=== PATIENT | female | born 1950 | race Hispanic/Latino ===

== ENCOUNTER 2017-10-28 10:45 | Inpatient (IN) | payer MEDICARE ==
[~2017-10-28] VITALS: Ht 170.2 cm; Wt 68.9 kg
[2017-10-28 12:50] VITALS: BP 136/70
[2017-10-28 13:22] LABS: BASOPHILS % (AUTO) 0.5 % (0.0-5.0); EOSINOPHILS % (AUTO) 0.7 % (0.0-8.0); HEMATOCRIT 41.6 % (36-48); LYMPHOCYTES % (AUTO) 24.2 % (21.0-51.0); MEAN CORPUSCULAR HEMOGLOBIN 30.4 pg (27.0-33.0); MEAN CORPUSCULAR HGB CONC 33.9 g/dL (32.0-36.0); MEAN CORPUSCULAR VOLUME 89.9 fL (79-99); MONOCYTES % (AUTO) 5.4 % (3.0-13.0); NEUTROPHILS % (AUTO) 69.2 % (40.0-77.0); NUCLEATED RED BLOOD CELLS 0.1 % (0.0-0.19); PLATELET COUNT (AUTO) 399 K/uL (130-400); RED BLOOD CELL COUNT(AUTO) 4.63 MIL/uL (4.00-5.50); RED CELL DISTRIBUTION WIDTH 14.6 % (11.0-15.5)
[2017-10-28 13:31] LABS: CREATININE 0.8 mg/dL (0.5-1.5); POTASSIUM 4.2 mmol/L (3.5-5.1)
[2017-10-28] MEDS ORDERED: LOSA50TA37 PO (13:33)
[2017-10-28] MEDS ORDERED: LATA2.5D2 OU (13:33)
[2017-10-29] VITALS (21 sets, daily range): BP systolic 107–145; BP diastolic 59–95
[2017-10-29] MEDS: CEFAZOLIN SODIUM 1 GM VIAL IVP SCH ×2 (06:00→09:40)
[2017-10-29] MEDS ORDERED: LACTATED RINGERS 1000ML 1,000 ML IV SCH (06:00)
[2017-10-29] MEDS ORDERED: GLYCOPYRROLATE 0.2 MG/ML 5 ML VIAL ONE (08:41)
[2017-10-29] MEDS ORDERED: DEXAMETHASONE SOD PHOSPHATE 10MG/ML 1ML VIAL ONE (08:41)
[2017-10-29] MEDS ORDERED: NEOSTIGMINE 5MG/5ML SYR IV ONE (08:41)
[2017-10-29] MEDS ORDERED: ONDANSETRON HCL 4 MG/2 ML VIAL ONE (08:41)
[2017-10-29] MEDS ORDERED: LIDOCAINE PF 2% 5ML ABBOJECT ONE (08:41)
[2017-10-29] MEDS ORDERED: MIDAZOLAM HCL 1 MG/ML 2ML VIAL ONE (08:42)
[2017-10-29] MEDS ORDERED: PROPOFOL 10 MG/ML 20ML VIAL IV ONE (08:42)
[2017-10-29] MEDS ORDERED: FENTANYL CITRATE PF 50 MCG/1 ML 2ML VIAL ONE (08:42)
[2017-10-29] MEDS ORDERED: ROPIVACAINE 0.5% 5MG/ML 30ML IJ ONE (08:48)
[2017-10-29] MEDS ORDERED: VECURONIUM BROMIDE 10 MG ML IV ONE (08:48)
[2017-10-29] MEDS ORDERED: MEPERIDINE-PF 25 MG/ML SYG ONE ×2 (11:06→11:19)
[2017-10-29] MEDS ORDERED: PROMETHAZINE HCL 25 MG/ML 1ML AMPULE IM PRN (11:15)
[2017-10-29] MEDS ORDERED: MEPERIDINE-PF 75 MG/ML SYG IM PRN (11:15)
[2017-10-29] MEDS ORDERED: PROMETHAZINE HCL 25 MG/ML 1ML AMPULE IM ONE (11:18)
[2017-10-29] MEDS: DEXTROSE 5%-LACTATED RINGERS 1,000 ML IV PRN ×2 (13:13→21:19)
[2017-10-29] MEDS: ACETAMINOPHEN-CODEINE 300/30MG TAB PO PRN (18:42)
[2017-10-29] MEDS: LATANOPROST 2.5 ML DROPS OU SCH (21:14)
[2017-10-30 03:25] VITALS: BP 143/80
[2017-10-30] MEDS: DEXTROSE 5%-LACTATED RINGERS 1,000 ML IV PRN (06:28)
[2017-10-30 06:51] LABS: HEMATOCRIT 41.8 % (36-48); MEAN CORPUSCULAR HEMOGLOBIN 30.2 pg (27.0-33.0); MEAN CORPUSCULAR HGB CONC 33.6 g/dL (32.0-36.0); MEAN CORPUSCULAR VOLUME 89.9 fL (79-99); PLATELET COUNT (AUTO) 373 K/uL (130-400); RED BLOOD CELL COUNT(AUTO) 4.65 MIL/uL (4.00-5.50); RED CELL DISTRIBUTION WIDTH 14.1 % (11.0-15.5); WHITE BLOOD COUNT (AUTO) 13.3 K/uL (4.8-10.8)
[2017-10-30 07:34] VITALS: BP 127/72
[2017-10-30] MEDS ORDERED: IBUPROFEN 800 MG TAB ONE (08:52)
[2017-10-30] MEDS: DOCUSATE SODIUM 100 MG CAP PO PRN ×2 (08:56→20:39)
[2017-10-30] MEDS: SIMETHICONE 80 MG TAB.CHEW PO PRN ×2 (08:56→20:39)
[2017-10-30] MEDS: LOSARTAN 50 MG TABLET PO SCH (08:56)
[2017-10-30] MEDS: IBUPROFEN 800 MG TAB PO SCH ×2 (08:57→19:19)
[2017-10-30 11:24] VITALS: BP 122/73
[2017-10-30 15:25] VITALS: BP 136/82
[2017-10-30] MEDS: ACETAMINOPHEN-CODEINE 300/30MG TAB PO PRN (16:04)
[2017-10-30] MEDS: LATANOPROST 2.5 ML DROPS OU SCH (20:40)
[2017-10-30 23:35] VITALS: BP 117/66
[2017-10-31 03:30] VITALS: BP 135/89
[2017-10-31] MEDS: IBUPROFEN 800 MG TAB PO SCH ×2 (03:30→11:18)
[2017-10-31 07:38] VITALS: BP 136/75
[2017-10-31] MEDS: LOSARTAN 50 MG TABLET PO SCH (09:05)
[2017-10-31] MEDS: DOCUSATE SODIUM 100 MG CAP PO PRN (09:06)
[2017-10-31] MEDS: SIMETHICONE 80 MG TAB.CHEW PO PRN (09:06)
[2017-10-31] MEDS: ACETAMINOPHEN-CODEINE 300/30MG TAB PO PRN (09:07)
[2017-10-31 11:23] VITALS: BP 136/80
== END 2017-10-31 12:50 | disposition home or self-care (01) | DRG 743 ==
LOC: DAHIP 10-29 08:09 → EDSTATUS 10-29 10:45 → WSH 10-29 12:30
PROVIDERS: ADMIT Specialist; ATTEND Specialist
PROC: 0UT20ZZ Resection of Bilateral Ovaries, Open Approach (ICD-10-PCS; 2017-10-29)
PROC: 0UT90ZZ Resection of Uterus, Open Approach (ICD-10-PCS; principal; 2017-10-29 09:26)
PROC: 0UT70ZZ Resection of Bilateral Fallopian Tubes, Open Approach (ICD-10-PCS; 2017-10-29 09:26)
DX: N83.9 Noninflammatory disorder of ovary, fallopian tube and broad ligament, unspecified (principal); I10 Essential (primary) hypertension; R19.00 Intra-abdominal and pelvic swelling, mass and lump, unspecified site
CPT/HCPCS: 36415; 80048; 85025; 85027; 86850; 86900; 86901; 88305; 88307; 88331; 88332; 93005; A4218; A4344; J0690; J1100; J2001; J2175; J2250; J2405; J2550; J2704; J2710; J2795; J3010; J3490; J7120

== ENCOUNTER → 2018-03-25 | Outpatient (CLI) | payer MEDICARE ==
[~2018-03-25] MED LIST: LATA2.5D2 OU; LOSA50TA25 PO
== END | disposition home or self-care (01) ==
LOC: OIH 15:31
PROVIDERS: ATTEND Family Medicine
DX: M25.512 Pain in left shoulder (principal)
CPT/HCPCS: 73030

== ENCOUNTER → 2019-11-10 | Outpatient (CLI) | payer MEDICARE ==
[~2019-11-10] MED LIST changes: -LOSA50TA25 PO; +LOSA50TA64 PO
== END | disposition home or self-care (01) ==
LOC: OIH 07:59
PROVIDERS: ATTEND Family Medicine
DX: M25.572 Pain in left ankle and joints of left foot (principal)
CPT/HCPCS: 73630